=== PATIENT | male | born 1985 | race Caucasian/White ===

== ENCOUNTER 2018-03-12 10:25 | Emergency (ER) | payer OTHER ==
[~2018-03-12] VITALS: Ht 182.9 cm; Wt 104.5 kg
[~2018-03-12 10:25] MED LIST: ALLEGRA180 MG PO; PRILOSEC10 MG PO; PROTONIX 40MG T40 MG PO; ZYRTEC 10MG
[2018-03-12 10:39] VITALS: BP 137/88; PULSE 82; TEMP 98.8
== END 2018-03-12 12:12 | disposition home or self-care (01) ==
LOC: COL.ER 10:25
DX: S61.213A Laceration without foreign body of left middle finger without damage to nail, initial encounter (principal); S61.215A Laceration without foreign body of left ring finger without damage to nail, initial encounter; Z23 Encounter for immunization; W26.8XXA Contact with other sharp object(s), not elsewhere classified, initial encounter; Y92.89 Other specified places as the place of occurrence of the external cause; Y99.0 Civilian activity done for income or pay